=== PATIENT | male | born 1985 | race American Indian/Alaskan Native ===

== ENCOUNTER 2019-02-23 09:45 | Emergency (ER) | payer SELFPAY ==
[2019-02-23 09:55] VITALS: BP 148/62
--- NOTE | 2019-02-23 12:10 | XRay Report ---
LEFT FOOT, 2 VIEWS INDICATION: trauma, pain. COMPARISON: None. IMPRESSION: Subtle nondisplaced fracture of the proximal phalanx of the fifth toe is detected. The r emaining bony structures and joint spaces are within normal limits. Normal soft tissues. Signer Name: Landen Sanchez Jr, MD Signed: 02/23/2019 12:05 PM Workstation Name: [id number]
--- NOTE | 2019-02-23 12:41 | Emergency Department Report ---
ED Lower Extremity HPI - General Chief Complaint: Extremity Injury, Lower Stated Complaint: LT PINKY TOE INJURY Source: patient Mode of arrival: Ambulatory Limitations: No Limitations - History of Present Illness Initial Comments: 33 yo AA male comes in with 5th toe pain for 2 days. He is not sure how he injured it. PMH none Has had previous l foot and r hand fracture. neurovascular intact and in nad -: Sudden Type of Injury: blunt Place: home Severity: mild Improves With: nothing Context: direct blow - Related Data Allergies Allergy/AdvReac Type Severity Reaction Status Date / Time No Known Allergies Allergy Unverified 02/23/19 09:53 ED Review of Systems ROS: Stated complaint: LT PINKY TOE INJURY Other details as noted in HPI Comment: All other systems reviewed and negative ED Past Medical Hx - Past Medical History Previous Medical History?: Yes Hx Asthma: Yes - Surgical History Past Surgical History?: No - Family History Family history: no significant - Social History Smoking Status: Never Smoker Substance Use Type: None ED Physical Exam - General Limitations: No Limitations General appearance: alert, in no apparent distress - Head Head exam: Present: atraumatic, normocephalic - Eye Eye exam: Present: normal appearance - ENT ENT exam: Present: mucous membranes moist - Neck Neck exam: Present: normal inspection - Respiratory Respiratory exam: Present: normal lung sounds bilaterally. Absent: respiratory distress - Cardiovascular Cardiovascular Exam: Present: regular rate, normal rhythm. Absent: systolic murmur, diastolic murmur, rubs, gallop - GI/Abdominal GI/Abdominal exam: Present: soft, normal bowel sounds - Rectal Rectal exam: Present: deferred - Extremities Exam Extremities exam: Present: normal inspection - Back Exam Back exam: Present: normal inspection - Neurological Exam Neurological exam: Present: alert, oriented X3 - Psychiatric Psychiatric exam: Present: normal affect, normal mood - Skin Skin exam: Present: warm, dry, intact, normal color. Absent: rash ED Course Vital Signs 02/23/19 09:55 Temperature 98.3 F Pulse Rate 83 Respiratory 18 Rate Blood Pressure 148/62 [Right] O2 Sat by Pulse 100 Oximetry ED Lower Extremity MDM - Radiology Data Radiology results: report reviewed, image reviewed - Medical Decision Making pos fx on xray ambulation limited by pain ortho shoe and crutches neurovascular intact. rapid cap refill. dp plus 2 dc home with rice tx and ortho follow up Vital Signs 02/23/19 09:55 Temperature 98.3 F Pulse Rate 83 Respiratory 18 Rate Blood Pressure 148/62 [Right] O2 Sat by Pulse 100 Oximetry - Differential Diagnosis ro fx Critical care attestation.: If time is entered above; I have spent that time in minutes in the direct care of this critically ill patient, excluding procedure time. ED Disposition Clinical Impression: Fracture, toe Disposition: DC-01 TO HOME OR SELFCARE Is pt being admited?: No Does the pt Need Aspirin: No Condition: Stable Instructions: Toe Fracture (ED) Additional Instructions: ortho shoe and crutches for comfort ice/rest/elevate motrin or tylenol for pain follow up with ortho MD next week referral below Referrals: NORMAN QUILES MD [Primary Care Provider] - 3-5 Days MAXIMO MAK MD [Staff Physician] - 3-5 Days Time of Disposition: 12:40
== END 2019-02-23 13:32 | disposition home or self-care (01) ==
LOC: ED 09:45
DX: S92.515A Nondisplaced fracture of proximal phalanx of left lesser toe(s), initial encounter for closed fracture (principal); J45.909 Unspecified asthma, uncomplicated; X58.XXXA Exposure to other specified factors, initial encounter; Y93.89 Activity, other specified; Y92.89 Other specified places as the place of occurrence of the external cause; Y99.8 Other external cause status